=== PATIENT | male | born 1965 | race Caucasian/White ===

== ENCOUNTER → 2018-10-31 12:12 | Outpatient (CLI) | payer MEDICARE | END | disposition home or self-care (01) | LOC: D.RAD 12:12 | PROVIDERS: ATTEND Urology | DX: N20.0 Calculus of kidney (principal) ==

== ENCOUNTER 2018-11-22 09:17 | Day surgery (SDC) | payer MEDICARE ==
[~2018-11-22] VITALS: Ht 172.7 cm; Wt 90.3 kg
[2018-11-22] MEDS ORDERED: BAYER CHEWABLE81 MG PO (12:22)
[2018-11-22] MEDS ORDERED: OXYCONTIN10 MG PO (12:22)
[2018-11-22] MEDS ORDERED: TRAZODONE HCL150 MG PO (12:22)
[2018-11-22 12:25] VITALS: BP 129/82; Ht 172.7 cm; Wt 90.3 kg
--- NOTE | 2018-11-23 09:07 | OP ---
PATIENT NAME: ALYSSA AHUMADA MEDICAL RECORD: [id number] :61 LOCATION:[facility] ADMISSION DATE: SURGEON: JOE LYNCH MD DATE OF OPERATION: 11/22/2018 SURGEON: Joe Lynch MD ANESTHESIA: General anesthesia by Hubert Stephens MD DIAGNOSIS: Left lower pole renal stone, 4 mm. FINDINGS: Radiodense left lower pole renal stone. PROCEDURE: Left ESWL times 3000 shocks. BLOOD LOSS: None. CLINICAL HISTORY: This is a 53-year-old male who initially presented to the hospital with diarrhea and flank pain. On CT scan, he had a 4-mm nonobstructive stone in the left lower pole of the kidney. There is also a 9-mm left adrenal adenoma and degenerative disc disease of the spine. No other abnormalities were found. The diarrhea has since passed. He has no previous history of kidney stones. HE IS ALLERGIC TO [place]. He comes today to have left ESWL performed on the left renal stone. Due to its small size, I did not offer him a ureteral stent. He was given Ancef on-call to the OR. DESCRIPTION OF PROCEDURE: The patient was placed on treatment table. We visualized the stone. He was then placed under general anesthesia. The stone was targeted in 2 planes. 3000 shocks were given to the stone and it broke up. The patient will be seen in followup in 2 weeks' time with a KUB to see if the stone is entirely gone. I have given him a script for Toradol 10 mg t.i.d. p.r.n. and Flomax. 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
== END 2018-11-22 16:44 | disposition home or self-care (01) ==
LOC: D.OPS 09:17 → D.PAN 12:15 → D.OPS 12:30
PROVIDERS: ATTEND Urology
DX: N20.0 Calculus of kidney (principal); Z01.812 Encounter for preprocedural laboratory examination; Z88.5 Allergy status to narcotic agent